=== PATIENT | female | born 1985 | race Two or more races ===

== ENCOUNTER 2023-07-12 01:47 | Emergency (ER) | payer OTHER ==
[~2023-07-12] VITALS: Ht 177.8 cm; Wt 100.0 kg
[2023-07-12 02:02] VITALS: BP 147/99; PULSE 98; RESP 16; TEMP 98; O2SAT 96
[2023-07-12] MEDS ORDERED: SULF400T11 PO (03:52)
== END 2023-07-12 03:56 | disposition home or self-care (01) ==
LOC: ER 01:50
DX: L02.31 Cutaneous abscess of buttock (principal); J45.909 Unspecified asthma, uncomplicated; Z88.6 Allergy status to analgesic agent
CPT/HCPCS: 10060